=== PATIENT | female | born 1975 | race Caucasian/White ===

== ENCOUNTER 2017-11-13 10:30 | Observation (INO) | payer OTHER, SELFPAY ==
[2017-11-13] VITALS (20 sets, daily range): BP systolic 101–158; BP diastolic 56–98; PULSE 55–99; RESP 12–20; TEMP 36.1–37; O2SAT 91–100; BMI 32.4
--- NOTE | 2017-11-13 10:55 | DI.RAD.S_ITS ---
PROCEDURE: XR WRIST LT MIN 3V INDICATIONS: arm deformity TECHNIQUE: 3 views of the wrist were acquired. COMPARISON: None. FINDINGS: Bones: Comminuted, articulating fracture of the distal radius shows one bone diameter dorsal displacement of the distal fracture fragments. The distal ulna is partially obscured by overlying bone but no obvious fracture is seen. On lateral view, there are 2 small bone fragments over the dorsum of the wrist raising the possibility of a triquetral fracture. Scaphoid view: Not requested Soft tissues: No suspicious soft tissue calcifications. IMPRESSION: 1. Highly comminuted, articulating and displaced fracture distal radius. 2. Possible triquetral fracture. Dictated by: Jac Landers M.D. on 11/13/2017 at 11:26 Approved by: Jac Landers M.D. on 11/13/2017 at 11:29
--- NOTE | 2017-11-13 10:59 | DI.RAD.S_ITS ---
PROCEDURE: XR ELBOW LT MIN 3V INDICATIONS: arm deformity TECHNIQUE: 3 views of the elbow were acquired. COMPARISON: None. FINDINGS: Bones: No fractures or dislocations. No suspicious bony lesions. Soft tissues: No elbow joint effusion. No suspicious soft tissue calcifications. IMPRESSION: Normal elbow Dictated by: Jac Landers M.D. on 11/13/2017 at 11:25 Approved by: Jac Landers M.D. on 11/13/2017 at 11:26
--- NOTE | 2017-11-13 11:00 | DI.RAD.S_ITS ---
PROCEDURE: XR CHEST 1V INDICATIONS: right rib pain TECHNIQUE: One view of the chest was acquired. COMPARISON: [facility], CR, XR CHEST 2 VIEWS, 10/08/2017, 10:01. FINDINGS: Surgical changes and devices: None. Lungs and pleura: No pleural effusions or pneumothorax. Lungs are clear. Mediastinum: Mediastinal contours appear normal. Heart size is normal. Bones and chest wall: No suspicious bony lesions. Overlying soft tissues appear unremarkable. IMPRESSION: 1. No acute displaced rib fractures identified. Rib series could be considered. 2. No pneumothorax or lung contusion. Dictated by: Jac Landers M.D. on 11/13/2017 at 11:29 Approved by: Jac Landers M.D. on 11/13/2017 at 11:30
--- NOTE | 2017-11-13 11:19 | ED.FALL ---
HPI - Fall General Chief Complaint: Trauma Stated Complaint: Trauma Time Seen by Provider: 11/13/17 10:39 Source: patient Mode of arrival: EMS Limitations: no limitations History of Present Illness HPI Narrative: 42-year-old female brought in by EMS for concerns of possible left wrist fracture and injury to her right side after she fell off a scaffolding while at work. Did not hit her head. No loss conscious. Not on anticoagulation. No vomiting. Does have bleeding to her left wrist and deformity to her left wrist. Right-sided chest pain with palpitations No shortness of breath. Related Data Previous Rx's Medication Instructions Recorded lisinopril 20 mg PO QDAY #30 tab 07/04/17 metoprolol tartrate 50 mg PO BID #30 tab 07/04/17 Allergies Allergy/AdvReac Type Severity Reaction Status Date / Time No Known Drug Allergies Allergy Verified 11/13/17 10:36 Review of Systems Constitutional Denies chills, Denies fever(s), Denies lethargy and Denies weakness Cardiovascular Reports chest pain (Right-sided chest pain with palpitations), Reports chest pain with activity, Denies irregular heart rhythm, Denies lightheadedness, Denies palpitations, Denies dyspnea, Denies dyspnea on exertion and Denies orthopnea Respiratory Denies cough, Denies dyspnea, Denies dyspnea on exertion and Denies wheezing Gastrointestinal Gastrointestinal: Denies abdominal pain, Denies change in bowel habits, Denies diarrhea, Denies nausea and Denies vomiting Musculoskeletal Comments: Pain deformity to left wrist Integumentary/Breasts Denies pruritus, Denies erythema, Denies rash and Denies wounds Comments: Bleeding to the left wrist Neurologic Denies weakness Endocrine Denies palpitations Hematologic/Lymphatic Denies easy bruising Allergic/Immunologic Denies wheezing Exam Initial Vital Signs Initial Vital Signs: Vital Signs Pulse Rate 55 L 11/13/17 10:37 Respiratory Rate 16 11/13/17 10:37 Blood Pressure 102/56 L 11/13/17 10:37 Pulse Oximetry 100 11/13/17 10:37 Neck Neck: normal visual inspection, trachea midline, No anterior neck swelling, No lymphadenopathy, No midline deformity and No JVD Lymphatic: No lymphedema Chest Other: Tenderness to palpation right chest wall under the right breast Resp Effort & Inspection: normal respiratory effort, able to speak in complete sentences, no respiratory distress and no use of accessory muscles Auscultation: clear to auscultation bilaterally, no rales, no rhonchi and no wheezes Cardio Rate: regular rate Rhythm: regular rhythm Heart Sounds: no click, no gallops, no murmurs and no rubs Pulses: radial pulses present and normal peripheral pulses Other: Capillary refill left hand less than 2 sec Back/Spine/Pelvis Back: normal to inspection, No back tenderness and No CVA tenderness Cervical Spine: cervical ROM normal, No collar present, No pain with cervical ROM, No cervical spinal tenderness and No step off deformity Thoracic/Lumbar Spine: thoracic and lumbar spine normal to inspection and thoraco-lumbar ROM normal Skin Other: Patient with a small laceration to the volar aspect of the left wrist Neuro Other: Sensation intact to light touch left upper extremity however is tingling per patient's report Extrem Other: Obvious deformity to left wrist with limited range of motion Left elbow unremarkable Left shoulder unremarkable [facility] Surgical History History of carpal tunnel repair Status post hysterectomy Social History household members: significant other Smoking Status: Current every day smoker alcohol intake: current Course Orders Ordered: ED Orders 11/13/17 12:54 Consult to Orthopedic Surgery Routine 11/13/17 15:30 Basic Metabolic Panel Stat Complete Blood Count AUTO DIFF Stat Hydromorphone HCl (Dilaudid) 1 mg IV Q4H PRN PRN Reason: Pain, Severe Last Admin: 11/13/17 15:20 Dose: 1 mg Lactated Ringer's (Lactated Ringers) 1,000 mls @ 42 mls/hr IV CONT JUDE Last Admin: 11/13/17 17:30 Dose: 42 mls/hr Ondansetron HCl (Zofran) 4 mg IV Q2HR PRN PRN Reason: Nausea And Vomiting Last Admin: 11/13/17 15:10 Dose: 4 mg Discontinued Medications Bupivacaine HCl (Sensorcaine 0.5% (Pf)) 20 ml INJ NOW ONE Stop: 11/13/17 18:36 Last Admin: 11/13/17 18:36 Dose: 20 ml Diphtheria/Tetanus/Acell Pertussis (Adacel) 0.5 ml IM .ONCE ONE Stop: 11/13/17 11:28 Last Admin: 11/13/17 11:48 Dose: 0.5 ml Hydromorphone HCl (Dilaudid) 1 mg IV NOW ONE Stop: 11/13/17 11:27 Last Admin: 11/13/17 11:55 Dose: Not Given Hydromorphone HCl (Dilaudid) 1 mg IV NOW ONE Stop: 11/13/17 11:57 Last Admin: 11/13/17 11:57 Dose: 1 mg Hydromorphone HCl (Dilaudid) 1 mg IV Q4HR PRN PRN Reason: Pain, Severe Cefazolin Sodium/Dextrose (Ancef) 2 gm in 100 mls @ 200 mls/hr IV NOW ONE Stop: 11/13/17 11:55 Last Infusion: 11/13/17 18:04 Dose: 0 mls/hr Admin: 11/13/17 17:44 Dose: 200 mls/hr Infusion: 11/13/17 12:45 Dose: 200 mls/hr Admin: 11/13/17 11:54 Dose: 200 mls/hr Ondansetron HCl 4 mg/ Sodium (Chloride) 52 mls @ 104 mls/hr IV Q6H PRN PRN Reason: Nausea And Vomiting Morphine Sulfate (Morphine Sulfate) 5 mg IV NOW ONE Stop: 11/13/17 12:52 Last Admin: 11/13/17 12:52 Dose: 5 mg Morphine Sulfate (Morphine Sulfate) 5 mg IV NOW ONE Stop: 11/13/17 12:54 Last Admin: 11/13/17 13:15 Dose: Not Given Vital Signs - 8 hr 11/13/17 12:46 11/13/17 13:44 11/13/17 14:36 Temperature 98.2 F Pulse Rate 66 63 76 Respiratory Rate 16 16 20 Blood Pressure 123/63 H Blood Pressure [Left Arm] 121/66 H 101/64 Pulse Oximetry 98 97 92 11/13/17 14:54 11/13/17 16:04 11/13/17 17:40 Temperature 97 F L 98.4 F 97.8 F Pulse Rate 69 79 78 Respiratory Rate 16 13 16 Blood Pressure 154/86 H 154/97 H 158/95 H Blood Pressure [Left Arm] Pulse Oximetry 98 95 96 MDM - Fall Lab Data Attestation: I reviewed the patient's lab results. Result diagrams: 11/13/17 15:30 11/13/17 15:30 Lab Results 11/13/17 11/13/17 Range/Units 15:30 15:30 WBC 10.9 (4.5-11.0) X10^3/uL RBC 4.50 (4.0-5.2) X10^6/uL Hgb 13.4 (12.0-16.0) g/dL Hct 38.6 (36-46) % MCV 85.7 (80-100) fL MCH 29.7 (26-34) PG MCHC 34.6 (30-36) % RDW 14.3 (11.6-14.8) % Plt Count 254 (150-400) X10^3/uL Neut % (Auto) 80.8 H (50-75) % Lymph % (Auto) 10.9 L (25-40) % [place] % (Auto) 7.8 (3-14) % Eos % (Auto) 0.2 L (2-4) % Baso % (Auto) 0.3 (0-2) % Neut # (Auto) 8800 H (3250-1477) /uL Sodium 140 (137-145) mmol/L Potassium 4.2 (3.4-5.1) mmol/L Chloride 104.0 (98-107) mmol/L Carbon Dioxide 22.0 (22-32) mmol/L BUN 14.0 (7-17) mg/dL Creatinine 0.70 (0.52-1.04) mg/dL Estimated GFR > 60.0 (>60) mL/min BUN/Creatinine Ratio 20.0 (6-22) Glucose 115 H (70-100) mg/dL Calcium 8.9 (8.4-10.2) mg/dL Imaging Data Left wrist x-ray: Radiologist's impression: PROCEDURE: XR WRIST LT MIN 3V INDICATIONS: arm deformity TECHNIQUE: 3 views of the wrist were acquired. COMPARISON: None. FINDINGS: Bones: Comminuted, articulating fracture of the distal radius shows one bone diameter dorsal displacement of the distal fracture fragments. The distal ulna is partially obscured by overlying bone but no obvious fracture is seen. On lateral view, there are 2 small bone fragments over the dorsum of the wrist raising the possibility of a triquetral fracture. Scaphoid view: Not requested Soft tissues: No suspicious soft tissue calcifications. IMPRESSION: 1. Highly comminuted, articulating and displaced fracture distal radius. 2. Possible triquetral fracture. Dictated by: Jac Landers M.D. on 11/13/2017 at 11:26 Chest x-ray: Radiologist's impression: No acute pathology Left elbow x-ray: Radiologist's impression: No acute abnormality MDM Narrative Medical decision making narrative: Patient is neurovascularly intact. Does have a comminuted left distal radius fracture. The laceration left wrist consistent with an open fracture. Patient's tetanus was updated. Was given 2 g of Ancef. Was given multiple doses of pain medication. No abdominal tenderness. No cervical spine tenderness. Will hold on further workup for now. Suspect the right-sided chest pain is musculoskeletal in origin. Will hold on abdominal CT. Discussed the case with Dr. Ziegler with Orthopedics who asked the patient be admitted to the hospital. So that she could be operated on today. Will admit. Discharge Plan Departure Patient Disposition: Admitted as Observation Clinical Impression: Distal radius fracture, left Discharge Date/Time: 11/13/17 14:46 Interventions: ED Discharge Assessment Last Done: 11/13/17 14:36 Admit Date/Time: 11/13/17 13:46 Admit Provider: Sunshine Ziegler
[2017-11-13] MEDS: TET,DIPH,PERTUSS(ACELL),VAC/PF 0.5 ML SYRINGE IM (11:48)
[2017-11-13] MEDS: CEFAZOLIN 2 GM/100 ML FROZ.PIGGY IV ×2 (11:54→17:44)
[2017-11-13] MEDS: HYDROMORPHONE 1 MG INJ IV (11:57)
--- NOTE | 2017-11-13 11:58 | PC.NURSE ---
PROVIDER AWARE OF CONCENTRATION OF DILAUDID AVAILABLE IN ER AT THIS TIME. 0.5ML/0.5MG SYRINGE ONLY AVAILABLE AT THIS TIME. PROVIDER GIVEN VERBAL ORDER TO REORDER MEDICATION. NOT ABLE TO SCAN 0.5MG/0.5ML AT THIS TIME DUE TO ENTRY ERROR BY PROVIDER. GIVEN VERBAL ORDER TO GIVE 2 SYRINGES OF 0.5MG/0.5ML TO PT FOR PAIN CONTROL. PHARMACY CONTACTED ABOUT MEDITECH ISSUE. CHARGE NURSE AWARE.
--- NOTE | 2017-11-13 12:20 | PC.NURSE ---
pt states her left hand is cold provider aware at this time. no new orders.
[2017-11-13] MEDS: MORPHINE 5 MG/ML INJ IV (12:52)
--- NOTE | 2017-11-13 12:53 | PC.NURSE ---
provider at bedside
[2017-11-13] MEDS: ONDANSETRON 4 MG/2 ML INJ IV (15:10)
[2017-11-13] MEDS: HYDROMORPHONE 0.5 MG INJ 1 MG IV (15:20)
[2017-11-13 15:40] LABS: Add Manual Diff / Slide Review NO; Basophils Percent Auto 0.3 % (0-2); Eosinophils Percent Auto 0.2 % (2-4); Hematocrit 38.6 % (36-46); Hemoglobin 13.4 g/dL (12.0-16.0); Lymphocytes Percent Auto 10.9 % (25-40); Mean Corpuscular HGB Conc 34.6 % (30-36); Mean Corpuscular Hemoglobin 29.7 PG (26-34); Mean Corpuscular Volume 85.7 fL (80-100); Monocytes Percent Auto 7.8 % (3-14); Neutrophils Absolute Auto 8800 /uL (3000-5900); Neutrophils Percent Auto 80.8 % (50-75); Platelet Count 254 X10^3/uL (150-400); Red Cell Distribution Width 14.3 % (11.6-14.8); White Blood Cell Count 10.9 X10^3/uL (4.5-11.0)
--- NOTE | 2017-11-13 15:49 | PC.NURSE ---
Admit into 213, Pt wheeled from ER into rom via w/c, able to stand and walk to bed with SBA. Admission completed. Pt concerned with continued burning to fingers, provider in ER aware Oncoming RN made aware [employer] brisk and ext warm.
[2017-11-13 15:50] LABS: Calcium 8.9 mg/dL (8.4-10.2); Estimated Glomerular Filt Rate > 60.0 mL/min (>60); Glucose 115 mg/dL (70-100); HEMOLYSIS < 15 (0-50); Potassium 4.2 mmol/L (3.4-5.1); Sodium 140 mmol/L (137-145)
[2017-11-13] MEDS: LACTATED RINGERS 1,000 ML 42 ML IV (17:30)
--- NOTE | 2017-11-13 17:50 | PC.NURSE ---
Patient taken to OR at 1705. Dianne requested that valuables be locked in safe, valpak form completed & signed and items locked in safe at main nurse station. OR aware she has not spoken to surgeon and no consent has been signed.
[2017-11-13] MEDS: BUPIVACAINE 0.5% (PF) 30 ML VIAL 20 ML INJ (18:36)
--- NOTE | 2017-11-13 19:20 | PM.PROC.1 ---
Procedures Date/Time Date of procedure: 11/13/17 Time of procedure: 20:54 Nerve Block Time out performed: Yes Local anesthetic used: lidocaine 2% (5mL + bupivacaine (0.25 / epi)) Location of anesthetic used: axilla Amount of anesthesia used (mL): 20 Nerve blocks: other (axillary brachial plexus ) Procedure successful: Yes Patient tolerated procedure: well Complications: none Additional comments: Consent obtained pre-op. Block performed post-op under general anesthesia. Chloroprep. Sterile technique. 22g x 50mm Pajunk advanced with in-plane US guidance. 5mL injected at each nerve site: median, ulnar, radial, and musculocutaneous. Negative aspiration throughout. Good LA spread noted at each site.
--- NOTE | 2017-11-13 20:56 | PM.HP.1 ---
History of Present Illness Chief complaint: Distal radius fracture left Narrative: Dianne Vieira is a 42 year old female who was working on a boat today when she fell on her outstretched left hand. She noted the acute onset of severe left arm pain and deformity. She also notes some moderate pain along her right rib wall. She is also having some mild low back pain. She denies a history of a loss of consciousness. It was an industrial injury as she was at work on a boat at the time of injury. [facility] Medical History Pulmonary embolism (Resolved) Surgical History History of carpal tunnel repair Status post hysterectomy Social History household members: significant other Smoking Status: Current every day smoker alcohol intake: current Meds Generic Name Dose Route Start Last Admin Trade Name Freq PRN Reason Stop Dose Admin Hydromorphone HCl 1 mg 11/13/17 15:30 11/13/17 15:20 Dilaudid IV 1 mg Q4H PRN Administration Pain, Severe Lactated Ringer's 1,000 mls @ 42 mls/hr 11/13/17 18:00 11/13/17 17:30 Lactated Ringers IV 42 mls/hr CONT JUDE Administration Ondansetron HCl 4 mg 11/13/17 13:56 11/13/17 15:10 Zofran IV 4 mg Q2HR PRN Administration Nausea And Vomiting Allergies Allergy/AdvReac Type Severity Reaction Status Date / Time No Known Drug Allergies Allergy Verified 11/13/17 10:36 Exam Vital Signs (past 8 hours): Vital Signs - 8 hr 11/13/17 13:44 11/13/17 14:36 11/13/17 14:54 Temperature 98.2 F 97 F L Pulse Rate 63 76 69 Respiratory Rate 16 20 16 Blood Pressure 123/63 H 154/86 H Blood Pressure [Left Arm] 101/64 Pulse Oximetry 97 92 98 11/13/17 16:04 11/13/17 17:40 Temperature 98.4 F 97.8 F Pulse Rate 79 78 Respiratory Rate 13 16 Blood Pressure 154/97 H 158/95 H Blood Pressure [Left Arm] Pulse Oximetry 95 96 Pulse Oximetry 96 Oxygen Delivery Method Room Air Oxygen Flow Rate 0 Narrative Exam Narrative: The patient knows that she does have a history of a pulmonary embolism which was associated with prior surgery. She is not currently taking any anticoagulation. She has a history of recent abdominal surgery. HEENT is benign head is atraumatic neck is supple lungs are clear cor regular rate and rhythm abdomen is soft she does have some tenderness along her ribcage predominantly on the right side she also has some moderate focal tenderness along her lumbar spine her left upper extremity shows open wound on the volar aspect of her wrist just proximal to the wrist crease which is actively bleeding slightly, she has healed carpal tunnel release incisions bilaterally, there is gross deformity of her left wrist with decreased range of motion into her fingers and decreased sensation both on the volar and dorsal aspect of her wrist, she does have some [id number] pain with gentle range of motion of her elbow Objective Labs Result Diagrams: 11/13/17 15:30 11/13/17 15:30 Labs: Laboratory Results - last 24 hr 11/13/17 11/13/17 15:30 15:30 WBC 10.9 RBC 4.50 Hgb 13.4 Hct 38.6 MCV 85.7 MCH 29.7 MCHC 34.6 RDW 14.3 Plt Count 254 Neut % (Auto) 80.8 H Lymph % (Auto) 10.9 L [place] % (Auto) 7.8 Eos % (Auto) 0.2 L Baso % (Auto) 0.3 Neut # (Auto) 8800 H Sodium 140 Potassium 4.2 Chloride 104.0 Carbon Dioxide 22.0 BUN 14.0 Creatinine 0.70 Estimated GFR > 60.0 BUN/Creatinine Ratio 20.0 Glucose 115 H Calcium 8.9 Assessment & Plan Plan: Plan: Her x-rays show a severely comminuted and grossly displaced left open distal radius fracture with marked intra-articular comminution. I have recommended irrigation and debridement for her open wound, I have also recommended percutaneous pinning but likely open reduction internal fixation with repair is indicated. There is a possibility she will require either bone grafting which I discussed with her or external fixation. Severely comminuted fracture is discussed with the patient in detail. I anticipate she will be unable to work for at least 6 weeks and will likely have some permanent disability related to her wrist. Risks benefits and complications were discussed in detail the severely comminuted open fracture and clearly needs emergent treatment. Quality VTE Deep Vein Thrombosis/Pulmonary Embolism Present on Admission: No
--- NOTE | 2017-11-13 21:06 | P.HP_ITS ---
History of Present Illness Chief complaint: Distal radius fracture left Narrative: Dianne Vieira is a 42 year old female who was working on a boat today when she fell on her outstretched left hand. She noted the acute onset of severe left arm pain and deformity. She also notes some moderate pain along her right rib wall. She is also having some mild low back pain. She denies a history of a loss of consciousness. It was an industrial injury as she was at work on a boat at the time of injury. [facility] Medical History Pulmonary embolism (Resolved) Surgical History History of carpal tunnel repair Status post hysterectomy Social History household members: significant other Smoking Status: Current every day smoker alcohol intake: current Meds Generic Name Dose Route Start Last Admin Trade Name Freq PRN Reason Stop Dose Admin Hydromorphone HCl 1 mg 11/13/17 15:30 11/13/17 15:20 Dilaudid IV 1 mg Q4H PRN Administration Pain, Severe Lactated Ringer's 1,000 mls @ 42 mls/hr 11/13/17 18:00 11/13/17 17:30 Lactated Ringers IV 42 mls/hr CONT JUDE Administration Ondansetron HCl 4 mg 11/13/17 13:56 11/13/17 15:10 Zofran IV 4 mg Q2HR PRN Administration Nausea And Vomiting Allergies Allergy/AdvReac Type Severity Reaction Status Date / Time No Known Drug Allergies Allergy Verified 11/13/17 10:36 Exam Vital Signs (past 8 hours): Vital Signs - 8 hr 3 11/13/17 13:44 11/13/17 14:36 11/13/17 14:54 Temperature 98.2 F 97 F L Pulse Rate 63 76 69 Respiratory Rate 16 20 16 Blood Pressure 123/63 H 154/86 H Blood Pressure [Left Arm] 101/64 Pulse Oximetry 97 92 98 3 11/13/17 16:04 11/13/17 17:40 Temperature 98.4 F 97.8 F Pulse Rate 79 78 Respiratory Rate 13 16 Blood Pressure 154/97 H 158/95 H Blood Pressure [Left Arm] Pulse Oximetry 95 96 Pulse Oximetry 96 Oxygen Delivery Method Room Air Oxygen Flow Rate 0 Narrative Exam Narrative: The patient knows that she does have a history of a pulmonary embolism which was associated with prior surgery. She is not currently taking any anticoagulation. She has a history of recent abdominal surgery. HEENT is benign head is atraumatic neck is supple lungs are clear cor regular rate and rhythm abdomen is soft she does have some tenderness along her ribcage predominantly on the right side she also has some moderate focal tenderness along her lumbar spine her left upper extremity shows open wound on the volar aspect of her wrist just proximal to the wrist crease which is actively bleeding slightly, she has healed carpal tunnel release incisions bilaterally, there is gross deformity of her left wrist with decreased range of motion into her fingers and decreased sensation both on the volar and dorsal aspect of her wrist, she does have some [id number] pain with gentle range of motion of her elbow Objective Labs Result Diagrams: 11/13/17 15:30 11/13/17 15:30 Labs: Laboratory Results - last 24 hr 11/13/17 11/13/17 15:30 15:30 WBC 10.9 RBC 4.50 Hgb 13.4 Hct 38.6 MCV 85.7 MCH 29.7 MCHC 34.6 RDW 14.3 Plt Count 254 Neut % (Auto) 80.8 H Lymph % (Auto) 10.9 L [place] % (Auto) 7.8 Eos % (Auto) 0.2 L Baso % (Auto) 0.3 Neut # (Auto) 8800 H Sodium 140 Potassium 4.2 Chloride 104.0 Carbon Dioxide 22.0 BUN 14.0 Creatinine 0.70 Estimated GFR > 60.0 BUN/Creatinine Ratio 20.0 Glucose 115 H Calcium 8.9 Assessment & Plan Plan: Plan: Her x-rays show a severely comminuted and grossly displaced left open distal radius fracture with marked intra-articular comminution. I have recommended irrigation and debridement for her open wound, I have also recommended percutaneous pinning but likely open reduction internal fixation with repair is indicated. There is a possibility she will require either bone grafting which I discussed with her or external fixation. Severely comminuted fracture is discussed with the patient in detail. I anticipate she will be unable to work for at least 6 weeks and will likely have some permanent disability related to her wrist. Risks benefits and complications were discussed in detail the severely comminuted open fracture and clearly needs emergent treatment. Quality VTE Deep Vein Thrombosis/Pulmonary Embolism Present on Admission: No
--- NOTE | 2017-11-13 21:07 | PM.OP.1 ---
Operative Date/Time/Diagnoses - Date of procedure: 11/13/17 Time of procedure: 17:07 Pre-op diagnosis: Grade 2 open left distal radius fracture severely comminuted intra-articular Post-op diagnosis: same Procedure & Clinicians Procedure: 1. irrigation and debridement grade 2 open left distal radius fracture 2. open reduction internal fixation left distal radius fracture 3. application of an external fixator 4. bone grafting left distal radius fracture Same procedure as scheduled: Yes Indications: This is a 42-year-old who fell from a height on an outstretched left wrist and noted the acute onset of severe pain and deformity and had a grade 2 open fracture. Surgeon: Sunshine Ziegler Anesthesia Type: General Operative Notes Findings: Severely comminuted left distal radius fracture, mild contamination, marked intra-articular extension grossly unstable fracture with marked softening of the bone. Closure Type: primary Specimen(s): none sent Implants & Drains: Colton Silva, 2 pins, VIA cell bone graft Estimated Blood Loss (mL): 100 Blood products transfused: none Tourniquet time (min): 65 Procedure in detail: The patient was brought to the operating room she underwent the induction of a general anesthesia. Her left upper extremity is prepped and draped in standard sterile fashion. Time-out was performed and antibiotics were given. The wrist was very gently and meticulously reduced. It was checked fluoroscopically. It was noted that it was severely comminuted and still markedly displaced. It was not felt to be amenable to closed reduction. Tourniquet was inflated to 250 mm of mercury. The patient's traumatic wound was on the volar aspect of her wrist. It was extended proximally and distally for a volar approach to the wrist. Dissection was carried out through skin and subcutaneous tissues and a weitlaner retractor was placed. The traumatic wound was meticulously debrided and copiously irrigated. There was some mild contamination. The fascia over the FCR was incised and the FCR was carefully mobilized. Dissection was carried out down to the level of the volar radius brachioradialis was partially released. Quadratus was carefully elevated off of the distal radius. The fracture then was meticulously reduced. It was severely comminuted. I carefully evaluated the distal fragment. It was too comminuted for fixation with a volar plate. Multiple K-wires were used partially as that joystick and the distal fracture fragments were carefully elevated attempted to elevate the articular surface and then it was carefully reduced. Two K-wires were used to provide temporary fixation and were ultimately left in. I evaluated the plate and the comminution of the fracture as well as the softness of the overall bone and I did not feel it was appropriate to proceed with plate fixation. An Colton WristJack external fixator was opened. An incision was made over the index metacarpal dissection was carried down to the level of the metacarpal and 2 distal pins were placed using that spacing guide and soft tissue protector. The extensor carpi radialis was protected and the superficial nerve branches were carefully protected. Alignment device was used for anticipated spacing of the radial pins. A radial incision was made over the dorsal radius. dissection was carried out through skin and subcutaneous tissues down to the level of the distal radius. Superficial branch of the dorsal sensory radial nerve was meticulously identified and carefully protected. The interval between the brachioradialis and the pronator teres was identified the superficial radial nerve branch was meticulously protected and 2 pins were placed in the radius. The external fixator was meticulously placed and carefully adjusted adjusted for slight traction and palmar deviation. The overall fracture alignment was checked as were the previously placed K-wires and the stability of the fracture. The patient's metacarpals and fingers could be placed through range of motion and there did not appear to be excessive tension. The wounds were meticulously irrigated with normal saline. The surgical wounds used for the placement of the external fixator were carefully closed with a combination interrupted Vicryl and nylon. The volar wound and the distal radius fracture was carefully bone grafted and the overall fracture and distal radius was recheck with fluoroscopy. The surgical wound was loosely closed with interrupted nylon. The traumatic wound was left slightly open for drainage. The wound was meticulously dressed. Marcaine was injected. Patient tolerated the procedure well. An axillary nerve block was also done by Anesthesia for postoperative pain management. Complications: none Condition: stable Disposition: PACU Plan for aftercare: IV antibiotics for 24 to 48 hr. Return to clinic in 1 week for check x-rays. Okay to do gentle shoulder and elbow range of motion.
[2017-11-13] MEDS: MEPERIDINE 50 MG/ML 25 MG IV (21:16)
--- NOTE | 2017-11-13 21:43 | SUR.PHASEI ---
Uneventful PACU stay. Some shivering, resolved after receiving Demerol. Despite mostly sleeping arouses immediately and appropriately to voice. Attempts at transferring on Room Air but sats to 91% on RA so will probably need o2 in AC. Will rttransfer with saline lock and room air (for trial). Sore throat and rec'd cold water tolerating well. No pain, minimal movement to operative hand. Transferred with sling and fixator cover.
--- NOTE | 2017-11-13 22:53 | PC.NURSE ---
Post-op note: Pt arrived from PACU at 2200, awake, oriented, speech garbled and slurred at times, able to express self. RA oxygen 88-90%, 2L O2 applied with sats increasing to 96% Other VS stable. Left distal arm/wrist/hand with surgical splint drsg & external fixator. Gauze near distal end of drsg at hand with scant sero-sang drainage, otherwise cdi. Supportive sling in place, per [employer] she had a block and needs to have sling on when transfers or moves in bed so her arm is supportive and she doesn't injure self. Denies nausea, tolerating ice chips, snack provided. SBA to bsc where she voided 400 ml clear yellow urine. Back into bed. Call button use reinforced for any needs. Belongings from safe given back to her, form signed and placed in chart.
[2017-11-14] MEDS: HYDROCODONE/ACET 5/325 TABLET 2 TAB PO (00:05)
[2017-11-14 00:06] VITALS: BP 138/78; PULSE 82; RESP 17; TEMP 36.9; O2SAT 95
[2017-11-14 01:12] VITALS: BP 134/81; PULSE 83; RESP 17; TEMP 37; O2SAT 95
[2017-11-14] MEDS: ASPIRIN EC 81 MG TABLET PO ×2 (01:14→09:05)
[2017-11-14] MEDS: CEFAZOLIN 2 GM/100 ML FROZ.PIGGY IV ×2 (01:14→09:05)
[2017-11-14] MEDS: LACTATED RINGERS 1,000 ML 125 ML IV (01:19)
[2017-11-14] MEDS: METOPROLOL 25 MG TABLET 50 MG PO (01:21)
[2017-11-14] MEDS: DOCUSATE 100 MG CAPSULE PO ×2 (01:22→09:06)
[2017-11-14] MEDS: ONDANSETRON 4 MG/2 ML INJ IV (01:41)
[2017-11-14] MEDS: VANCOMYCIN 150 MG IV (01:50)
--- NOTE | 2017-11-14 04:00 | PC.NURSE ---
Assumed care of pt from outgoing shift at 2300 5-21. Pt awake. complains of pain. given pain medicine. Pt later complained of nausea, given medicine. then wanted sandwich. pt stated she felt better after that. Pt asked for pain shot- non orderd, discussed with pt medicine options, stated she would wait until 4 to receive anything more. ice applied. will continue to monitor. Pt ambulates steady gait to BR. uses call light. bed in lowest,locked position. belongings and call light within reach. will continue to monitor pt for safety.
[2017-11-14 04:55] VITALS: BP 130/87; PULSE 64; RESP 18; TEMP 37.1; O2SAT 95
[2017-11-14] MEDS: OXYCODONE/ACETAMINOPHEN 5/325 TABLET 2 TAB PO ×2 (04:55→09:02)
[2017-11-14 06:21] LABS: Hematocrit 34.2 % (36-46); Hemoglobin 11.9 g/dL (12.0-16.0)
--- NOTE | 2017-11-14 07:26 | SUR.HOLD ---
Block start time [2153] . Monitoring initiated and maintained throughout procedure. Oxygen and medications given per anesthesiologist instructions. Patient remained stable throughout procedure, no adverse reactions noted. Block end time [2203].Block actually done at the end of the case by Dr. palomino.
[2017-11-14 08:14] VITALS: BP 121/74; PULSE 63; RESP 15; TEMP 37.3; O2SAT 95
[2017-11-14] MEDS: LISINOPRIL 20 MG TABLET PO (09:05)
[2017-11-14] MEDS: SODIUM CHLORIDE 0.9% FLUSH 10 ML IV (09:06)
[2017-11-14] MEDS: METOPROLOL 50 MG TABLET PO (09:06)
--- NOTE | 2017-11-14 09:36 | OT.IP.EVAL ---
Surgery Performed Operation Date: 11/13/17 17:00 Actual Procedures p ORIF Wrist Fracture with bone graft(Left) - Sunshine Ziegler MD Past Medical History (Last Updated 11/13/17 @ 20:59 by Sunshine Ziegler MD) Pulmonary embolism (Resolved) Surgical History (Last Reviewed 11/13/17 @ 20:21 by Rajesh Hill DO) History of carpal tunnel repair Status post hysterectomy Occupational Therapy Inpatient Evaluation/Re-Eval M1 PT/OT-IP Prior Functional Status Start: 11/14/17 09:12 Freq: NEEDED Status: Active Protocol: Document 11/14/17 08:30 [facility] (Rec: 11/14/17 09:33 [facility] [id number]) Medical Review Prior Functional Status Medical History Reviewed Yes Diet/Fluid Consistency Regular Mobility and Gait Independent Activities of Daily Living and IADL's Independent Social History Household Members significant other Living Arrangements Apartment/Condo Number of Stairs To Enter/Railing? Flight of steps to her apartment. Employment Status Insurance Plan Specialist Employed M2 OT-IP Current Condition Start: 11/14/17 09:12 Freq: Status: Active Protocol: Document 11/14/17 08:30 [facility] (Rec: 11/14/17 09:33 [facility] [id number]) Occupational Therapy Current Condition Current Condition Evaluation Date 11/14/17 Treatment Diagnosis Distal radius fracture Diagnosis Onset Date 11/13/17 Post Operative Precautions Other Precautions Arm in sling when up, okay for gentle shoulder and elbow ROM . Weight Bearing Status Weight Bearing Status Non-Weight Bearing M3 OT- IP Subjective and Pain Start: 11/14/17 09:12 Freq: Status: Active Protocol: Document 11/14/17 08:30 [facility] (Rec: 11/14/17 09:33 [facility] [id number]) OT- Subjective Occupational Therapy Visit Type Type Initial Evaluation Visit Start Time 08:30 Visit Stop Time 09:05 Total Visit Minutes 35 Occupational Therapy Visit Comments Patient/Caregiver Goals [facility]. OT Pain Assessment Pain When Pain Assessed At Rest Pain Present Pain Present Pain Reported Location Left Arm Intensity 5 Scale Used Numeric (1 - 10) Pain Behaviors Facial Grimacing Holding Area Management Techniques Timing of Activity with Medications M4 OT- IP ADL's Start: 11/14/17 09:12 Freq: Status: Active Protocol: Document 11/14/17 08:30 [facility] (Rec: 11/14/17 09:33 [facility] [id number]) OT [id number]-[id number]-[id number] General Evaluation Self-Feeding Ability Standby Assistance Areas Needing Assistance Opening Containers OT ADL-Grooming General Evaluation Grooming Ability Minimal Assistance Areas Needing Assistance Retrieving/Set-up of Grooming Items Combing/Brushing Hair OT ADL-Oral Care General Eval Oral Care Ability Independent Devices Oral Care Devices Toothbrush OT ADL-Dressing General Eval Upper Body Dressing Ability Maximum Assistance Lower Body Dressing Ability Maximum Assistance Areas Needing Assistance Retrieving/Set-up of Clothing Managing Buttons Managing Zippers/Fasteners Pull-Over Shirt Pants/Shorts Socks Shoes Comments OT Dressing Comments Educated pt on sling management and for UB /LB dressing and at the end of the session able to doug/doff sling on her own. OT ADL-Toileting General Evaluation Toileting Ability Minimal Assistance Areas Needing Assistance Manage Clothing Devices Toileting Assistive Devices Commode OT ADL-Bathing Comments OT Bathing Comments Pt states to do at home. M5 OT- IP IADL's Start: 11/14/17 09:12 Freq: Status: Active Protocol: Document 11/14/17 08:30 [facility] (Rec: 11/14/17 09:33 [facility] [id number]) OT-Instrumental Activities of Daily Living Deficits IADL Deficits Identified Deficits Driving Driving Comments Recommend no driving at this time due to taking pain medications. M6 OT- IP Functional Cognition Start: 11/14/17 09:12 Freq: Status: Active Protocol: Document 11/14/17 08:30 [facility] (Rec: 11/14/17 09:33 [facility] [id number]) Cognitive Factors Limiting Selfcare Function Cognitive Ability Level of Alertness Alert Drowsy Patient Orientation Name Age Birthday Month Date Year Day of Week Place Situation Attention Span Ability Capable of Focused Attention Capable of Sustained Attention Ability to Follow Commands Able to Follow Multi-Step Commands Memory Description No Deficits Noted Safety Awareness No Deficits Noted Problem Solving Ability No deficits Noted Executive Function Ability No Deficits Noted OT- Vision and Hearing OT- Hearing Assessment OT- Hearing Assessment WFL OT- Vision Assessment Visual Acuity WFL M7 OT- IP Mobility and Balance Start: 11/14/17 09:12 Freq: Status: Active Protocol: Document 11/14/17 08:30 [facility] (Rec: 11/14/17 09:33 [facility] [id number]) OT- Bed Mobility Assessment Rolling Level of Assistance Standby Assistance Supine to Sit Supine to Sit Assist Standby Assistance Sit to Supine Sit to Supine Assist Standby Assistance OT-Transfer Assessment Sit to and From Stand Sit to and from Stand Standby Assistance Transfers Transfer Ability Standby Assistance Technique Transfer Destination Bed Transfer Technique Stand Step Pivot Devices Transfer Assistive Devices None Comments Mobility Comments SBA for all giat and transfers , pt will need VANNA from lower surfaces. OT- Gait Assessment Gait Gait Assistance Required: Standby Assistance Assistive Devices Assistive Device None M8 OT- IP Objective Assessments Start: 11/14/17 09:12 Freq: Status: Active Protocol: Document 11/14/17 08:30 [facility] (Rec: 11/14/17 09:33 [facility] [id number]) OT Gross Range of Motion Upper Extremity Range of Motion Assessment Left Impaired OT Strength Upper Extremity Strength Assessment Left Impaired OT-Muscle Tone Assessment Muscle Tone WNL Yes M9 OT- IP Assessment and Plan Start: 11/14/17 09:12 Freq: Status: Active Protocol: Document 11/14/17 08:30 [facility] (Rec: 11/14/17 09:33 [facility] [id number]) OT Summary Assessment and Plan Potential Rehabilitation Potential Excellent Analytic Complexity at Evaluation Low Summary OT Impairments Pain Grooming Dressing Toileting Bathing Progress Towards Goals Progressing Toward Goals Safe For Discharge Assessment Summary Pt here due to fall and distal left radius fracture and to go home with boyfriend initially and then to brother' s home. Pt ambulating well and mainly just assist for clothing, sling, showering needs due to not able to use LUE. Goals Dressing Goal Minimal Assistance Bathing Goal Minimal Assistance Patient/Caregiver Education Goal Caregiver Independent Assisting Patient OT-Other Goals Pt to be independent for LUE managaement for positioning and sling management needs. Frequency of Treatment Frequency Of Treatment Once a Day Treatment Plan OT Treatment Plan ADL Training Discharge Planning Discharge Recommendations OT Discharge Recommendations Home with Assistance
[2017-11-14 10:12] VITALS: O2SAT 99
--- NOTE | 2017-11-14 10:31 | PM.DS.1 ---
History of Present Illness Date Patient Seen: 11/14/17 Time Patient Seen: 10:43 Chief complaint: Distal radius fracture left Narrative: Dianne Vieira is a 42 year old female with a grade 2 left distal radius fracture that did an ORIF with application of an external fixator on 11/13/17. Her injury was caused when she was working on a boat and fell on her left outstretched hand. It was an industrial injury. Discharge Providers Date of admission: 11/13/17 13:46 Primary care physician: Chey Mcgowan MD Consults: 11/13/17 21:55 Consult to Discharge Planning Routine Comment: Consult to Occupational Therapy Evaluate & Treat Comment: shoulder and elbow rom as tolerated Physician Instructions: Evaluate and treat Consult to Respiratory Therapy Evaluate & Treat Comment: Physician Instructions: Evaluate and treat Discharge provider: Kalpana Lauren PA-C Summary Hospital Course: Discharge Diagnosis (1) Distal radius fracture, left: Status: Acute Problem Details: Pt had an ORIF with application of external fixator. Pt will be d/c home today. Gentle ROM in fingers. ROM in elbow and shoulder. F/U on Monday in office. Status at Discharge Cognitive/behavioral status at discharge: Alert and orient x3 Functional status at discharge: independent ambulation Overall status at discharge: patient is back to baseline Time Spent with Patient Total time spent providing and/or coordinating discharge services: Exam Vital Signs (past 8 hours): Vital Signs - 8 hr 11/14/17 04:55 11/14/17 08:14 11/14/17 10:12 Temperature 98.7 F 99.1 F Pulse Rate 64 63 Respiratory Rate 18 15 Blood Pressure 130/87 H 121/74 H Pulse Oximetry 95 95 99 Pulse Oximetry 99 Oxygen Delivery Method Nasal Cannula Oxygen Flow Rate 2 Narrative Exam Narrative: Pt in bed. Dressing on left wrist dry. Bruising on thumb and index fingers. Able to move fingers some. Good ROM in elbow and shoulder. Alert and oriented x3. NV status intact. Objective Labs Result Diagrams: 11/14/17 05:43 11/13/17 15:30 Labs: Laboratory Results - last 24 hr 11/13/17 11/13/17 11/14/17 15:30 15:30 05:43 WBC 10.9 RBC 4.50 Hgb 13.4 11.9 L Hct 38.6 34.2 L MCV 85.7 MCH 29.7 MCHC 34.6 RDW 14.3 Plt Count 254 Neut % (Auto) 80.8 H Lymph % (Auto) 10.9 L [place] % (Auto) 7.8 Eos % (Auto) 0.2 L Baso % (Auto) 0.3 Neut # (Auto) 8800 H Sodium 140 Potassium 4.2 Chloride 104.0 Carbon Dioxide 22.0 BUN 14.0 Creatinine 0.70 Estimated GFR > 60.0 BUN/Creatinine Ratio 20.0 Glucose 115 H Calcium 8.9 Discharge Plan Discharge Plan Patient Disposition: Home, Self-Care Discharge comment: No lifting with left hand. Return to the clinic on Monday at the [address] [place] [address] in [place] in for follow-up appointment. Provider Discharge Instructions Diet: Diet as Tolerated Activity: No weight bearing on surgical extremity. Cold/Heat Therapy: Apply ice as needed for comfort and Applying ice helps with pain, bruising and swelling Wound Care Report to your healthcare provider any signs of infection, such as:: chills, fever, night sweats, increased pain and unusual drainage Dressing: Keep dressing clean, dry, and intact Discharge Data Primary Care Provider: Chey Mcgowan Attending Provider: Sunshine Ziegler Admit Date/Time: 11/13/17 13:46 Quality VTE Deep Vein Thrombosis/Pulmonary Embolism Present on Admission: No
--- NOTE | 2017-11-14 11:22 | CM.DANOTE ---
DCP Chart Review/Discharge Patient is a 42 year old female who was admitted OBS STATUS on 11/13/17 for Distal Radius Fx. Pt has L&I for insurance and her PCP is Dr. Mcgowan. EMR was reviewed. Per MD, pt is medically stable to d/c home today with no identified barriers to discharge. Per RN, no identified needs at this time. Plan: Patient to d/c home today via family POV. No SW needs at this time, please refer if indicated. MIGUELINA Brito
[2017-11-14] MEDS: OXYCODONE IR 5 MG TABLET 15 MG PO (12:10)
== END 2017-11-14 12:32 | disposition home or self-care (01) ==
LOC: ED 13:13 → AC 13:47
PROVIDERS: Admitting Provider Orthopaedic Surgery; Emergency Provider Emergency Medicine; PCP Family Medicine; Visit Provider Orthopaedic Surgery
PROC: (CPT 25608; principal; 2017-11-13 17:00)
DX: S52.502B Unspecified fracture of the lower end of left radius, initial encounter for open fracture type I or II (principal); V93.39XA Fall on board unspecified watercraft, initial encounter; Y99.0 Civilian activity done for income or pay; F17.210 Nicotine dependence, cigarettes, uncomplicated; G89.18 Other acute postprocedural pain
CPT/HCPCS: 25608; 20690; 29125; 36415; 36591; 64450; 71045; 73080; 73110; 80048; 85014; 85018; 85025; 90471; 94760; 96365; 96366; 96375; 97165; 97535; 99283; 99285; 99406; C1776; G0378; 90715; J0690; J1100; J1170; J2175; J2250; J2270; J2405; J2704; J3010; J3370